=== PATIENT | male | born 2000 | race Caucasian/White ===

== ENCOUNTER 2018-01-13 03:08 | Inpatient (IN) | payer MEDICAID, OTHER ==
[2018-01-13] MEDS: SODIUM CHLORIDE 0.9% 1L BAG IV* (04:31)
[2018-01-13] MEDS: CEFTRIAXONE 1 GM/50 ML (PMX) 50 ML IVPB (04:32)
[2018-01-13 04:44] LABS: ADD MAN DIFF? NO
[2018-01-13] MEDS: IBUPROFEN 600 MG TAB PO (04:44)
[2018-01-13 05:00] LABS: ABNORMAL IP MESSAGE 1; BASOPHILS % 0.1 % (0.0-2.0); EOSINOPHILS % 0.2 % (0.0-7.0); HEMATOCRIT 44.8 % (42.0-52.0); HEMOGLOBIN 15.5 g/dl (14.0-18.0); LYMPHOCYTES # 0.4 10^3/ul (0.8-2.9); LYMPHOCYTES % 3.9 % (18.0-55.0); MEAN CORPUSCULAR HEMOGLOBIN 30.2 pg (29.0-33.0); MEAN CORPUSCULAR HGB CONC 34.6 g/dl (32.0-37.0); MEAN CORPUSCULAR VOLUME 87.2 fl (72.0-104.0); MEAN PLATELET VOLUME 9.9 fl (7.4-10.4); MONOCYTE # 0.3 10^3/ul (0.3-0.9); NEUTROPHIL # 8.3 10^3/ul (1.6-7.5); NEUTROPHILS % 92.2 % (30.0-74.0); PLATELET COUNT 207 10^3/UL (140-415); POSITIVE DIFF @See below; RED BLOOD COUNT 5.14 10^6/ul (4.70-6.10); RED CELL DISTRIBUTION WIDTH 11.8 % (11.5-14.5)
[2018-01-13 05:12] LABS: INR 1.01; PARTIAL THROMBOPLASTIN TIME 24.7 Sec (25.0-35.0); PROTIME 13.4 Sec (11.9-14.9)
[2018-01-13 05:30] LABS: LACTIC ACID 3.6 mmol/L (0.5-2.0)
[2018-01-13] MEDS ORDERED: ALBUTEROL/IPRATROPIUM (NEB) 3 ML AMP HHN (05:30)
[2018-01-13] MEDS ORDERED: VANCOMYCIN IV PER PHARMACY XX (05:30)
[2018-01-13] MEDS ORDERED: NACL 0.9% 3 ML SYG IV (05:30)
[2018-01-13] MEDS: PIPER-TAZO 3.375 GM IV (PMX) 100 ML IVPB (05:42)
[2018-01-13] MEDS: ONDANSETRON 4 MG INJ IV (05:42)
[2018-01-13] MEDS: morphine 2 MG INJ IV ×2 (05:42→16:25)
[2018-01-13 05:48] LABS: ALANINE AMINOTRANSFERASE 25 IU/L (13-69); ALBUMIN 4.8 g/dl (3.3-4.9); ALKALINE PHOSPHATASE 104 IU/L (42-121); ANION GAP 20 (8-16); ASPARTATE AMINO TRANSFERASE 33 IU/L (15-46); BILIRUBIN,INDIRECT 0.8 mg/dl (0-1.1); BILIRUBIN,TOTAL 0.8 mg/dl (0.2-1.3); BLOOD UREA NITROGEN 19 mg/dl (7-20); CALCIUM 9.9 mg/dl (8.4-10.2); CARBON DIOXIDE 22 mmol/L (21-31); CHLORIDE 104 mmol/L (97-110); CREATININE 0.89 mg/dl (0.61-1.24); GLUCOSE 114 mg/dl (70-220); LIPASE 33 U/L (23-300); POTASSIUM 3.2 mmol/L (3.5-5.1); SODIUM 143 mmol/L (135-144); TOTAL PROTEIN 7.8 g/dl (6.1-8.1)
[2018-01-13] MEDS: VANCOMYCIN 1 GM (PMX) 250 ML IVPB ×3 (06:11→21:52)
[2018-01-13 06:13] LABS: ADD UMIC NO; UR ASCORBIC ACID NEGATIVE (NEGATIVE); UR BILIRUBIN (Dip) NEGATIVE (NEGATIVE); UR BLOOD (Dip) NEGATIVE (NEGATIVE); UR CLARITY CLEAR (CLEAR); UR COLOR YELLOW (YELLOW); UR GLUCOSE (Dip) NEGATIVE (NEGATIVE); UR KETONES (Dip) NEGATIVE (NEGATIVE); UR LEUKOCYTE ESTERASE (Dip) NEGATIVE Leu/ul (NEGATIVE); UR NITRITE (Dip) NEGATIVE (NEGATIVE); UR TOTAL PROTEIN (Dip) NEGATIVE (NEGATIVE); UR UROBILINOGEN (Dip) NEGATIVE (NEGATIVE)
[2018-01-13 06:39] LABS: TROPONIN-I < 0.012 ng/ml (0.000-0.120)
[2018-01-13] MEDS: HYDROCODONE/APAP (5/325) TAB PO ×2 (07:22→19:41)
[2018-01-13] MEDS: HYDROmorphONE 1 MG/5 ML IV SYRINGE IV (07:35)
[2018-01-13 08:10] LABS: LACTIC ACID 1.4 mmol/L (0.5-2.0)
[2018-01-13] MEDS: ACETAMINOPHEN 325 MG TAB PO ×2 (08:53→19:41)
[2018-01-13] MEDS: SOD CHLORIDE 0.9% 1,000 ML IV (09:31)
[2018-01-13] MEDS: CEFEPIME 1GM/50 ML (PMX) 50 ML IVPB ×2 (09:44→23:09)
[2018-01-13] MEDS: POTASSIUM CHLORIDE (SR) 20 MEQ TAB PO (10:30)
[2018-01-13] MEDS: POTASSIUM CHLORIDE 20 MEQ POWDER FOR ORAL SOLN PO ×2 (10:51→14:30)
[2018-01-13] MEDS: BARIUM SULF 2% 450 ML BTL (BERRY SMOOTHIE) PO (12:38)
[2018-01-13] MEDS ORDERED: VANCOMYCIN 1 GM 250 ML IVPB (14:00)
[2018-01-13] MEDS: metroNIDAZOLE 500 MG/NS (PMX) 100 ML IVPB ×2 (14:30→21:50)
[2018-01-13] MEDS: SOD CHLORIDE 0.9% 100 ML (15:47)
[2018-01-13] MEDS: IOHEXOL 300MG/ML 150 ML BTL (15:47)
[2018-01-14] MEDS: SOD CHLORIDE 0.9% 1,000 ML IV ×3 (00:31→22:39)
[2018-01-14] MEDS: ACETAMINOPHEN 325 MG TAB PO (02:55)
[2018-01-14] MEDS: metroNIDAZOLE 500 MG/NS (PMX) 100 ML IVPB ×3 (05:13→22:34)
[2018-01-14 05:25] LABS: ABNORMAL IP MESSAGE 1; HEMATOCRIT 38.1 % (42.0-52.0); HEMOGLOBIN 12.9 g/dl (14.0-18.0); MEAN CORPUSCULAR HEMOGLOBIN 30.4 pg (29.0-33.0); MEAN CORPUSCULAR HGB CONC 33.9 g/dl (32.0-37.0); MEAN CORPUSCULAR VOLUME 89.9 fl (72.0-104.0); MEAN PLATELET VOLUME 10.3 fl (7.4-10.4); PLATELET COUNT 160 10^3/UL (140-415); POSITIVE DIFF @See below; RED BLOOD COUNT 4.24 10^6/ul (4.70-6.10); RED CELL DISTRIBUTION WIDTH 12.8 % (11.5-14.5)
[2018-01-14 05:33] LABS: ADD MAN DIFF? YES
[2018-01-14 06:09] LABS: ANION GAP 9 (8-16); BLOOD UREA NITROGEN 11 mg/dl (7-20); CALCIUM 8.2 mg/dl (8.4-10.2); CARBON DIOXIDE 27 mmol/L (21-31); CHLORIDE 109 mmol/L (97-110); CREATININE 0.83 mg/dl (0.61-1.24); GLUCOSE 97 mg/dl (70-220); MAGNESIUM 1.7 mg/dl (1.7-2.5); PHOSPHORUS 3.5 mg/dl (2.5-4.9); POTASSIUM 3.8 mmol/L (3.5-5.1); SODIUM 141 mmol/L (135-144)
[2018-01-14 07:31] LABS: ANISOCYTOSIS 1+ (0-0); BAND NEUTROPHILS #M 5.5 10^3/ul (0.0-0.6); BAND NEUTROPHILS % (M) 50 % (0-10); EOSINOPHILS % (M) 5 % (0-7); LYMPHOCYTES #M 0.3 10^3/ul (0.8-2.9); LYMPHOCYTES % (M) 3 % (18-55); METAMYELOCYTES #M 0.2 10^3/ul (0.0-0.0); METAMYELOCYTES %M 2 % (0-0); MYELOCYTES #M 0.1 10^3/ul (0.0-0.0); MYELOCYTES % (M) 1 % (0-0); PLATELET ESTIMATE NORMAL; POIKILOCYTOSIS 2+ (0-0); POLYCHROMASIA 3+ (0-0); SEG NEUT #M 4.9 10^3/ul (1.6-7.5); SEGMENTED NEUTROPHILS (M) % 39 % (30-74); SMUDGE%M 5 % (0-0)
[2018-01-14] MEDS: HYDROCODONE/APAP (5/325) TAB PO ×2 (09:18→19:11)
[2018-01-14] MEDS: CELECOXIB 200 MG CAP PO (10:19)
[2018-01-14] MEDS: FAMOTIDINE 20 MG TAB PO ×2 (10:19→20:13)
[2018-01-14] MEDS: CEFEPIME 1GM/50 ML (PMX) 50 ML IVPB ×2 (12:30→20:13)
[2018-01-14 14:35] LABS: C-REACTIVE PROTEIN 22.9 mg/dl (0.0-0.9)
[2018-01-14] MEDS: VANCOMYCIN 750 MG in DEXTROSE 5% 150 ML IVPB (23:47)
[2018-01-15 05:32] LABS: ABNORMAL IP MESSAGE 1; HEMATOCRIT 35.7 % (42.0-52.0); HEMOGLOBIN 12.3 g/dl (14.0-18.0); MEAN CORPUSCULAR HEMOGLOBIN 30.8 pg (29.0-33.0); MEAN CORPUSCULAR HGB CONC 34.5 g/dl (32.0-37.0); MEAN CORPUSCULAR VOLUME 89.3 fl (72.0-104.0); MEAN PLATELET VOLUME 10.7 fl (7.4-10.4); PLATELET COUNT 134 10^3/UL (140-415); RED CELL DISTRIBUTION WIDTH 12.8 % (11.5-14.5)
[2018-01-15 05:32] LABS: WHITE BLOOD COUNT 8.6 10^3/ul (4.8-10.8)
[2018-01-15 05:46] LABS: ANION GAP 12 (8-16); BLOOD UREA NITROGEN 9 mg/dl (7-20); CALCIUM 8.4 mg/dl (8.4-10.2); CARBON DIOXIDE 24 mmol/L (21-31); CHLORIDE 108 mmol/L (97-110); CREATININE 0.67 mg/dl (0.61-1.24); GLUCOSE 105 mg/dl (70-220); POTASSIUM 3.7 mmol/L (3.5-5.1); SODIUM 140 mmol/L (135-144)
[2018-01-15 06:05] LABS: ADD MAN DIFF? YES
[2018-01-15] MEDS: metroNIDAZOLE 500 MG/NS (PMX) 100 ML IVPB ×2 (06:12→13:48)
[2018-01-15] MEDS: morphine LIQ (10 MG/5 ML) CUP PO (08:49)
[2018-01-15] MEDS: CELECOXIB 200 MG CAP PO ×2 (08:49→20:48)
[2018-01-15] MEDS: FAMOTIDINE 20 MG TAB PO ×2 (09:03→20:48)
[2018-01-15] MEDS: CEFEPIME 1GM/50 ML (PMX) 50 ML IVPB ×2 (09:03→20:45)
[2018-01-15] MEDS: VANCOMYCIN 750 MG in DEXTROSE 5% 150 ML IVPB ×2 (10:09→22:25)
[2018-01-15 10:48] LABS: BAND NEUTROPHILS #M 6.2 10^3/ul (0.0-0.6); BAND NEUTROPHILS % (M) 12 % (0-10); EOSINOPHILS # 0.6 10^3/ul (0.0-0.5); EOSINOPHILS % (M) 7 % (0.0-7.0); LYMPHOCYTES # 0.3 10^3/ul (0.8-2.9); LYMPHOCYTES #M 0.3 10^3/ul (0.8-2.9); LYMPHOCYTES % (M) 4 % (18-55); MONOCYTE # 0.3 10^3/ul (0.3-0.9); MONOCYTE #M 0.2 10^3/ul (0.3-0.9); MONOCYTES % (M) 3 % (0-13); PROLYMPHOCYTES # (M) 0.1 10^3/ul (0.0-0.0); PROLYMPHOCYTES % (M) 2 10^3/ul (0.0-0.0); SEG NEUT #M 6.7 10^3/ul (1.7-7.5); SEGMENTED NEUTROPHILS (M) % 72 % (30-74)
[2018-01-15 10:49] LABS: BURR CELLS 1+
[2018-01-15] MEDS: HYDROCODONE/APAP (5/325) TAB PO (13:47)
[2018-01-15] MEDS: SOD CHLORIDE 0.9% 1,000 ML IV (17:38)
[2018-01-16 05:49] LABS: ADD MAN DIFF? NO
[2018-01-16] MEDS: SOD CHLORIDE 0.9% 1,000 ML IV ×2 (05:51→09:39)
[2018-01-16 05:54] LABS: WHITE BLOOD COUNT 10.3 10^3/ul (4.8-10.8)
[2018-01-16 05:54] LABS: ABNORMAL IP MESSAGE 1; BASOPHILS % 0.1 % (0.0-2.0); EOSINOPHILS # 0.6 10^3/ul (0.0-0.5); EOSINOPHILS % 5.5 % (0.0-7.0); HEMATOCRIT 33.7 % (42.0-52.0); HEMOGLOBIN 11.6 g/dl (14.0-18.0); LYMPHOCYTES # 0.5 10^3/ul (0.8-2.9); LYMPHOCYTES % 5.2 % (18.0-55.0); MEAN CORPUSCULAR HEMOGLOBIN 30.4 pg (29.0-33.0); MEAN CORPUSCULAR HGB CONC 34.4 g/dl (32.0-37.0); MEAN CORPUSCULAR VOLUME 88.5 fl (72.0-104.0); MEAN PLATELET VOLUME 10.9 fl (7.4-10.4); MONOCYTE # 0.4 10^3/ul (0.3-0.9); MONOCYTES % 3.5 % (0.0-13.0); NEUTROPHIL # 8.8 10^3/ul (1.6-7.5); NEUTROPHILS % 85.3 % (30.0-74.0); PLATELET COUNT 161 10^3/UL (140-415); POSITIVE DIFF @See below; RED BLOOD COUNT 3.81 10^6/ul (4.70-6.10); RED CELL DISTRIBUTION WIDTH 12.8 % (11.5-14.5)
[2018-01-16 06:15] LABS: ANION GAP 12 (8-16); BLOOD UREA NITROGEN 8 mg/dl (7-20); CALCIUM 8.2 mg/dl (8.4-10.2); CARBON DIOXIDE 26 mmol/L (21-31); CHLORIDE 110 mmol/L (97-110); CREATININE 0.64 mg/dl (0.61-1.24); GLUCOSE 97 mg/dl (70-220); POTASSIUM 3.5 mmol/L (3.5-5.1); SODIUM 144 mmol/L (135-144)
[2018-01-16] MEDS: CELECOXIB 200 MG CAP PO ×2 (09:39→20:52)
[2018-01-16] MEDS: FAMOTIDINE 20 MG TAB PO ×2 (09:39→20:52)
[2018-01-16] MEDS: CEFEPIME 1GM/50 ML (PMX) 50 ML IVPB ×2 (09:39→20:51)
[2018-01-16] MEDS: HYDROCODONE/APAP (5/325) TAB PO ×2 (09:39→20:52)
[2018-01-16 10:23] LABS: VANCOMYCIN,TROUGH < 5.0 ug/ml (10.0-20.0)
[2018-01-16] MEDS: VANCOMYCIN 750 MG in DEXTROSE 5% 150 ML IVPB ×2 (11:03→19:10)
[2018-01-17] MEDS: VANCOMYCIN 750 MG in DEXTROSE 5% 150 ML IVPB ×3 (02:46→18:44)
[2018-01-17] MEDS: SOD CHLORIDE 0.9% 1,000 ML IV ×2 (07:42→21:51)
[2018-01-17] MEDS: HYDROCODONE/APAP (5/325) TAB PO ×2 (09:17→21:08)
[2018-01-17] MEDS: CEFEPIME 1GM/50 ML (PMX) 50 ML IVPB ×2 (09:17→21:08)
[2018-01-17] MEDS: FAMOTIDINE 20 MG TAB PO ×2 (09:17→21:08)
[2018-01-17] MEDS: CELECOXIB 200 MG CAP PO ×2 (09:17→21:08)
[2018-01-17 17:22] LABS: VANCOMYCIN,TROUGH 7.4 ug/ml (10.0-20.0)
[2018-01-18] MEDS: VANCOMYCIN 1 GM 250 ML IVPB ×3 (02:16→17:23)
[2018-01-18 05:45] LABS: BLOOD UREA NITROGEN 8 mg/dl (7-20)
[2018-01-18 05:45] LABS: CREATININE 0.61 mg/dl (0.61-1.24)
[2018-01-18] MEDS: SOD CHLORIDE 0.9% 1,000 ML IV (06:18)
[2018-01-18] MEDS: CEFEPIME 1GM/50 ML (PMX) 50 ML IVPB ×2 (08:31→21:23)
[2018-01-18] MEDS: HYDROCODONE/APAP (5/325) TAB PO (08:31)
[2018-01-18] MEDS: CELECOXIB 200 MG CAP PO ×2 (08:31→21:23)
[2018-01-18] MEDS: FAMOTIDINE 20 MG TAB PO ×2 (08:31→21:23)
[2018-01-19] MEDS: SOD CHLORIDE 0.9% 1,000 ML IV ×3 (00:31→13:51)
[2018-01-19 02:40] LABS: VANCOMYCIN,TROUGH 8.6 ug/ml (10.0-20.0)
[2018-01-19] MEDS: VANCOMYCIN 1 GM 250 ML IVPB (03:57)
[2018-01-19] MEDS: FAMOTIDINE 20 MG TAB PO ×2 (08:17→20:58)
[2018-01-19] MEDS: CELECOXIB 200 MG CAP PO ×2 (08:17→20:58)
[2018-01-19] MEDS: CEFEPIME 1GM/50 ML (PMX) 50 ML IVPB ×2 (08:18→20:58)
[2018-01-19] MEDS: VANCOMYCIN 1.25 GM in SOD CHLORIDE 0.9% 250 ML IVPB ×2 (09:50→17:11)
[2018-01-19] MEDS: AZITHROMYCIN 250 MG TAB PO (11:51)
[2018-01-20] MEDS: SOD CHLORIDE 0.9% 1,000 ML IV ×2 (02:01→03:11)
[2018-01-20] MEDS: VANCOMYCIN 1.25 GM in SOD CHLORIDE 0.9% 250 ML IVPB (02:02)
[2018-01-20 05:20] LABS: ADD MAN DIFF? NO
[2018-01-20 05:23] LABS: WHITE BLOOD COUNT 7.4 10^3/ul (4.8-10.8)
[2018-01-20 05:23] LABS: ABNORMAL IP MESSAGE 1; BASOPHIL # 0.1 10^3/ul (0.0-0.1); BASOPHILS % 0.7 % (0.0-2.0); EOSINOPHILS # 0.5 10^3/ul (0.0-0.5); EOSINOPHILS % 6.2 % (0.0-7.0); HEMATOCRIT 39.5 % (42.0-52.0); HEMOGLOBIN 13.2 g/dl (14.0-18.0); LYMPHOCYTES # 1.9 10^3/ul (0.8-2.9); LYMPHOCYTES % 26.1 % (18.0-55.0); MEAN CORPUSCULAR HEMOGLOBIN 29.5 pg (29.0-33.0); MEAN CORPUSCULAR HGB CONC 33.4 g/dl (32.0-37.0); MEAN CORPUSCULAR VOLUME 88.4 fl (72.0-104.0); MEAN PLATELET VOLUME 9.3 fl (7.4-10.4); MONOCYTE # 0.6 10^3/ul (0.3-0.9); MONOCYTES % 7.8 % (0.0-13.0); NEUTROPHILS % 53.8 % (30.0-74.0); PLATELET COUNT 340 10^3/UL (140-415); POSITIVE DIFF @See below; RED BLOOD COUNT 4.47 10^6/ul (4.70-6.10); RED CELL DISTRIBUTION WIDTH 12.4 % (11.5-14.5)
[2018-01-20 05:50] LABS: ALANINE AMINOTRANSFERASE 40 IU/L (13-69); ALBUMIN 3.4 g/dl (3.3-4.9); ALKALINE PHOSPHATASE 93 IU/L (42-121); ANION GAP 16 (8-16); ASPARTATE AMINO TRANSFERASE 23 IU/L (15-46); BILIRUBIN,INDIRECT 0.4 mg/dl (0-1.1); BILIRUBIN,TOTAL 0.4 mg/dl (0.2-1.3); BLOOD UREA NITROGEN 12 mg/dl (7-20); C-REACTIVE PROTEIN 3.7 mg/dl (0.0-0.9); CARBON DIOXIDE 28 mmol/L (21-31); CHLORIDE 106 mmol/L (97-110); GLUCOSE 95 mg/dl (70-220); POTASSIUM 4.1 mmol/L (3.5-5.1); SODIUM 146 mmol/L (135-144); TOTAL PROTEIN 6.8 g/dl (6.1-8.1)
[2018-01-20 07:09] LABS: ERYTHROCYTE SEDIMENTATION RATE 50 mm/Hr (0-15)
[2018-01-20] MEDS: CELECOXIB 200 MG CAP PO (08:27)
[2018-01-20] MEDS: TRIMETHOPRIM/SULFAMETHOX (DS) TAB PO (08:27)
[2018-01-20] MEDS: FAMOTIDINE 20 MG TAB PO (08:27)
== END 2018-01-20 11:44 | disposition home or self-care (01) | DRG 872 ==
LOC: E/R 03:08 → MS1 04:17
DX: A41.9 Sepsis, unspecified organism (principal); M00.9 Pyogenic arthritis, unspecified; M70.42 Prepatellar bursitis, left knee; Y93.B9 Activity, other involving muscle strengthening exercises; F17.210 Nicotine dependence, cigarettes, uncomplicated
CPT/HCPCS: 36415; 71045; 73562; 73721; 74177; 80048; 80053; 80202; 81003; 82565; 83605; 83690; 83735; 84100; 84484; 84520; 84560; 85025; 85610; 85651; 85730; 86140; 87040; 87086; 93005; 96374; 96375; 97161; 99291-25

== ENCOUNTER 2018-12-19 14:08 | Emergency (ER) | payer MEDICAID, OTHER ==
[2018-12-19] MEDS ORDERED: BACITRACIN 0.9 GM OINT (15:53)
== END 2018-12-19 16:11 | disposition home or self-care (01) ==
LOC: FTE 14:08
DX: S50.812A Abrasion of left forearm, initial encounter (principal); S00.81XA Abrasion of other part of head, initial encounter; V89.2XXA Person injured in unspecified motor-vehicle accident, traffic, initial encounter
CPT/HCPCS: 99283; Z7502